=== PATIENT | female | born 1965 | race African-American/Black ===

== ENCOUNTER 2021-05-20 14:17 | Emergency (ER) | payer MEDICAID ==
[~2021-05-20] VITALS: Ht 152.4 cm; Wt 47.6 kg
--- NOTE | 2021-05-20 15:08 | NUR ---
WORSENING CHRONIC LEFT HIP PAIN. PT A/OX3. L BKA NOTED.
[2021-05-20] MEDS ORDERED: KETOROLAC TROMETHAMINE INJ 60 MG/2 ML VIAL IM ONE (22:00)
[2021-05-20] MEDS ORDERED: HYDROCODONE/APAP 5/325MG TABLET PO ONE (22:00)
[2021-05-20] MEDS ORDERED: HYDROCODONE/APAP 5/325MG TABLET ONE (22:19)
[2021-05-20] MEDS ORDERED: KETOROLAC TROMETHAMINE INJ 30 MG/ML VIAL ONE (22:19)
--- NOTE | 2021-05-20 23:50 | NUR ---
Patient discharged to home in stable condition. Written and verbal after care instructions given. Patient verbalizes understanding of instruction. PT ambulatory with a steady gait WITH WALKER
[2021-05-21 00:07] VITALS: BP 151/81
== END 2021-05-21 00:08 | disposition home or self-care (01) ==
LOC: ER 14:20
DX: G89.29 Other chronic pain (principal); M16.12 Unilateral primary osteoarthritis, left hip; F17.200 Nicotine dependence, unspecified, uncomplicated; F12.90 Cannabis use, unspecified, uncomplicated; E11.9 Type 2 diabetes mellitus without complications; I10 Essential (primary) hypertension; Z96.642 Presence of left artificial hip joint; Z60.2 Problems related to living alone
CPT/HCPCS: 73503; 82962; 96372; 99283; 99406; J1885; 73502

== ENCOUNTER 2023-03-28 17:04 | Emergency (ER) | payer MEDICAID ==
[~2023-03-28] VITALS: Ht 152.4 cm; Wt 50.8 kg
[2023-03-28 17:54] VITALS: BP 134/74; TEMP 98.4; O2SAT 100
[2023-03-28] MEDS ORDERED: KETOROLAC TROMETHAMINE 15 MG/ML VIAL ONE (18:29)
[2023-03-28] MEDS ORDERED: KETOROLAC TROMETHAMINE 15 MG/ML VIAL IM ONE (18:30)
== END 2023-03-28 19:04 | disposition home or self-care (01) ==
LOC: ER 17:07
DX: M79.641 Pain in right hand (principal); E11.9 Type 2 diabetes mellitus without complications; F17.200 Nicotine dependence, unspecified, uncomplicated; Z60.2 Problems related to living alone
CPT/HCPCS: 99283; 96372; 73130; J1885

== ENCOUNTER 2023-04-21 00:41 | Emergency (ER) | payer MEDICAID ==
[~2023-04-21] VITALS: Ht 152.4 cm; Wt 50.8 kg
[2023-04-21] MEDS ORDERED: IBUPROFEN 600 MG TABLET PO ONE (01:00)
[2023-04-21] MEDS ORDERED: IBUPROFEN 600 MG TABLET ONE (01:03)
[2023-04-21 02:39] VITALS: BP 132/86; TEMP 98; O2SAT 99
== END 2023-04-21 02:40 | disposition home or self-care (01) ==
LOC: ER 00:49
DX: M79.605 Pain in left leg (principal); E78.5 Hyperlipidemia, unspecified; E11.9 Type 2 diabetes mellitus without complications; F17.200 Nicotine dependence, unspecified, uncomplicated; Z60.2 Problems related to living alone
CPT/HCPCS: 73590-TC

== ENCOUNTER 2024-03-28 15:21 | Emergency (ER) | payer MEDICAID, OTHER ==
[~2024-03-28] VITALS: Ht 154.9 cm; Wt 40.8 kg
[2024-03-28 15:52] VITALS: BP 145/70; TEMP 98; O2SAT 99
== END 2024-03-28 18:27 | disposition left against medical advice (07) ==
LOC: ER 15:25
DX: M79.10 Myalgia, unspecified site (principal); Z53.21 Procedure and treatment not carried out due to patient leaving prior to being seen by health care provider

== ENCOUNTER 2025-02-11 05:35 | Inpatient (IN) | payer OTHER ==
[2025-02-11] VITALS (9 sets, daily range): BP systolic 114–163; BP diastolic 69–70; TEMP 97.8–98.2; O2SAT 94–99
[~2025-02-11] VITALS: Ht 152.4 cm; Wt 38.7 kg
[2025-02-11] MEDS: ALBUTEROL FS 2.5 MG/3 ML VIAL.NEB NEB ONE (05:51)
[2025-02-11] MEDS: IPRATROPIUM NEB FS 0.5 MG/2.5 ML AMPUL.NEB NEB ONE (05:51)
[2025-02-11] MEDS ORDERED: IPRATROPIUM NEB FS 0.5 MG/2.5 ML AMPUL.NEB ONE (05:55)
[2025-02-11] MEDS ORDERED: ALBUTEROL FS 2.5 MG/3 ML VIAL.NEB ONE (05:55)
[2025-02-11 06:04] LABS: PLATELET COUNT (AUTO) 325 K/uL (150-450); RED BLOOD CELL COUNT(AUTO) 3.21 MIL/uL (4.0-5.2); RED CELL DISTRIBUTION WIDTH 13.5 % (11.5-15.0); WHITE BLOOD COUNT (AUTO) 9.7 K/uL (4.3-11.0)
[2025-02-11 06:12] LABS: CALCIUM, SERUM 8.7 mg/dL (8.5-10.1); CREATININE 1.6 mg/dL (0.6-1.3); SODIUM SERUM 143 mmol/L (136-145); UREA NITROGEN, BLOOD 34 mg/dL (7-18)
[2025-02-11] MEDS ORDERED: FUROSEMIDE 40 MG/4 ML VIAL ONE (06:33)
[2025-02-11 06:34] LABS: ABG BASE EXCESS -2.4 mmol/L (-2.0-3.0); ABG OXYGEN SATURATION 95.6 % (94.0-98.0); ABG PCO2 32.0 mmHg (32.0-45.0); ABG PH 7.437 (7.350-7.450); ABG PO2 80.7 mmHg (83.0-108.0); ABG TOTAL HEMOGLOBIN 10.5 G/dL (12.0-16.0); FLOW, BLOOD GAS 8.00 L/min (0.00-30.00); FRACTIONATED INSPIRED OXYGEN 52.0 %; SITE, ABG RIGHT BRACHIAL
[2025-02-11] MEDS: FUROSEMIDE 40 MG/4 ML VIAL IV ONE (06:37)
[2025-02-11] MEDS ORDERED: ASPIRIN 325 MG TABLET ONE (06:38)
[2025-02-11] MEDS: ASPIRIN 325 MG TABLET PO ONE (06:40)
[2025-02-11] MEDS ORDERED: NITROGLYCERIN PACKET 1 GM PACKET ONE (06:58)
[2025-02-11] MEDS: NITROGLYCERIN PACKET 1 GM PACKET TD ONE (07:03)
[2025-02-11] MEDS ORDERED: MAG HYDROX/AL HYDROX/SIMETH 30 ML UDC PO PRN (08:30)
[2025-02-11] MEDS ORDERED: ONDANSETRON HCL/PF 4 MG/2 ML VIAL IVP PRN (08:30)
[2025-02-11] MEDS ORDERED: ACETAMINOPHEN 325 MG TABLET PO PRN (08:30)
[2025-02-11] MEDS ORDERED: MAGNESIUM HYDROXIDE 30 ML UDC PO PRN (08:30)
[2025-02-11] MEDS ORDERED: Z GUARD REMEDY 4 OZ OINT TP PRN (08:30)
[2025-02-11] MEDS: ASPIRIN 81 MG TAB.CHEW PO SCH (10:08)
[2025-02-11] MEDS: ENOXAPARIN SODIUM 40 MG/0.4 ML DISP.SYRIN SQ SCH (10:08)
[2025-02-11 10:27] LABS: PHOSPHORUS 4.0 mg/dL (2.5-4.9)
[2025-02-11 10:28] LABS: IRON, SERUM 50.0 ug/dl (50-175)
[2025-02-11] MEDS: ENOXAPARIN SODIUM 30 MG/0.3 ML DISP.SYRIN SQ SCH (10:30)
[2025-02-11 10:44] LABS: LDL 89.0 mg/dL (0-99)
[2025-02-11] MEDS: FUROSEMIDE 40 MG/4 ML VIAL IV SCH (11:04)
[2025-02-11 17:51] LABS: AMPHETAMINE, URINE NEGATIVE (NEGATIVE); BARBITURATE, URINE NEGATIVE (NEGATIVE); BENZODIAZEPINE, URINE NEGATIVE (NEGATIVE); CANNABINOID, URINE NEGATIVE (NEGATIVE); OPIATE, URINE NEGATIVE (NEGATIVE)
[2025-02-11] MEDS ORDERED: AMLO-213 PO (17:53)
[2025-02-11] MEDS ORDERED: GABA300C PO (17:53)
[2025-02-11] MEDS ORDERED: OMEP20TA5 PO (17:53)
[2025-02-11] MEDS ORDERED: LISI40TA13 PO (17:53)
[2025-02-11] MEDS ORDERED: DEXTROSE 50%-WATER 50 ML DISP.SYRIN IV PRN (18:00)
[2025-02-11 18:12] LABS: COCCAINE, URINE POSITIVE (NEGATIVE)
[2025-02-11] MEDS: BLOOD SUGAR DIAGNOSTIC 1 EACH STRIP VI SCH (21:26)
[2025-02-11] MEDS: *INSULIN REGULAR(HUMULIN R)HUM 100 UNIT/ML VIAL SQ PRN (21:29)
[2025-02-12] VITALS: BP_SYST 112; BP_SYST 118; BP_DIAS 60; BP_DIAS 67; TEMP 98.1; TEMP 98.2; O2SAT 100; O2SAT 97
[2025-02-12 04:00] VITALS: BP 146/61; TEMP 97.5; O2SAT 100
[2025-02-12] MEDS: INSULIN REGULAR, HUMAN 100 UNIT/ML 3 ML VIAL SQ PRN (06:34)
[2025-02-12 06:48] LABS: PLATELET COUNT (AUTO) 396 K/uL (150-450); RED BLOOD CELL COUNT(AUTO) 3.21 MIL/uL (4.0-5.2); RED CELL DISTRIBUTION WIDTH 13.6 % (11.5-15.0); WHITE BLOOD COUNT (AUTO) 12.7 K/uL (4.3-11.0)
[2025-02-12 07:24] LABS: ASPARTATE AMINOTRANSFERASE 18.0 U/L (15-37); CALCIUM, SERUM 9.2 mg/dL (8.5-10.1); CREATINE KINASE, TOTAL 218 U/L (26-192); CREATININE 1.9 mg/dL (0.6-1.3); PHOSPHORUS 3.9 mg/dL (2.5-4.9); SODIUM SERUM 137.0 mmol/L (136-145); TOTAL PROTEIN, SERUM 6.8 g/dL (6.4-8.2); UREA NITROGEN, BLOOD 46.0 mg/dL (7-18)
[2025-02-12 08:49] VITALS: BP 132/60; TEMP 98; O2SAT 98
[2025-02-12] MEDS: FUROSEMIDE 20 MG/2 ML VIAL IV STA (09:39)
[2025-02-13 05:13] LABS: PTH, INTACT 165 pg/mL (15-65)
== END 2025-02-12 10:20 | disposition left against medical advice (07) | DRG 194 ==
LOC: ER 05:37 → TELE 07:43 → MED 02-12 08:20
PROVIDERS: ADMIT Internal Medicine
DX: I13.0 Hypertensive heart and chronic kidney disease with heart failure and stage 1 through stage 4 chronic kidney disease, or unspecified chronic kidney disease (principal); N17.0 Acute kidney failure with tubular necrosis; G93.41 Metabolic encephalopathy; J96.01 Acute respiratory failure with hypoxia; R64 Cachexia; I21.A1 Myocardial infarction type 2; D64.9 Anemia, unspecified; E11.22 Type 2 diabetes mellitus with diabetic chronic kidney disease; J44.1 Chronic obstructive pulmonary disease with (acute) exacerbation; I50.23 Acute on chronic systolic (congestive) heart failure; F17.210 Nicotine dependence, cigarettes, uncomplicated; Z89.512 Acquired absence of left leg below knee; E78.5 Hyperlipidemia, unspecified; Z20.822 Contact with and (suspected) exposure to COVID-19; Z68.1 Body mass index [BMI] 19.9 or less, adult; N18.9 Chronic kidney disease, unspecified
CPT/HCPCS: 36415; 36600; 71045-TC; 76770-TC; 80048-TC; 80053-TC; 80061-TC; 82550-TC; 82728-TC; 82803-TC; 82962-TC; 83540-TC; 83735-TC; 83880; 83970; 84100-TC; 84155; 84165; 84439-TC; 84443-TC; 84484-TC; 85025-TC; 93307-TC; G0378; J1650; J1815; J1938; J2919